=== PATIENT | male | born 1980 | race Caucasian/White ===

== ENCOUNTER 2017-11-09 19:44 | Inpatient (IN) | payer MEDICAID, OTHER ==
[~2017-11-09] VITALS: Ht 175.3 cm; Wt 84.4 kg
[2017-11-09 20:22] LABS: BASOPHILS % (AUTO) 0.7 % (0.0-2.0); EOSINOPHILS % (AUTO) 4.4 % (1.0-6.0); HEMOGLOBIN 18.7 g/dL (13.5-17.5); LYMPHOCYTES # (AUTO) 4.8 K/uL (1.0-4.8); LYMPHOCYTES % (AUTO) 42.6 % (22.0-44.0); MEAN CORPUSCULAR HEMOGLOBIN 32.6 pg (26.0-34.0); MEAN CORPUSCULAR HGB CONC 36.1 G/dL (31.0-37.0); MEAN CORPUSCULAR VOLUME 90 fL (80-100); MONOCYTES # (AUTO) 0.7 K/uL (0.1-1.0); MONOCYTES % (AUTO) 6.5 % (2.0-9.0); NEUTROPHILS # (AUTO) 5.1 K/uL (1.8-7.7); NEUTROPHILS % (AUTO) 45.8 % (40.0-70.0); PLATELET COUNT (AUTO) 286 K/uL (150-450); RED BLOOD CELL COUNT(AUTO) 5.74 MIL/uL (4.50-5.90)
[2017-11-09 20:36] LABS: ANION GAP 13 mmol/L (8-16); CALCIUM, TOTAL 8.8 mg/dL (8.8-10.5); CARBON DIOXIDE 28 mmol/L (22-29); CHLORIDE 103 mmol/L (98-107); CREATININE 0.98 mg/dL (0.60-1.30); GLOMERULAR FILTR. RATE CALC > 60 mL/min (>60); GLUCOSE,RANDOM 102 mg/dL (70-110); POTASSIUM 3.6 mmol/L (3.5-5.1); SODIUM SERUM 144 mmol/L (136-145); UREA NITROGEN, BLOOD 9 mg/dL (7-18)
[2017-11-09 20:42] LABS: ALANINE AMINOTRANSFERASE 50 U/L (12-78); ALBUMIN 4.5 g/dL (3.4-5.0); ALKALINE PHOSPHATASE 69 U/L (46-116); ASPARTATE AMINOTRANSFERASE 33 U/L (15-37); BILIRUBIN,TOTAL 0.7 mg/dL (0.1-1.0); TOTAL PROTEIN, SERUM 8.2 g/dL (6.4-8.2)
[2017-11-09 21:34] LABS: AMPHET/METH SCREEN,URINE NEGATIVE (NEGATIVE); BARBITURATE SCREEN, URINE NEGATIVE (NEGATIVE); BENZODIAZEPINES SCREEN,URINE NEGATIVE (NEGATIVE); CANNABINOID SCREEN,URINE POSITIVE (NEGATIVE); COCAINE SCREEN,URINE NEGATIVE (NEGATIVE); METHADONE SCREEN, URINE NEGATIVE (NEGATIVE); OPIATE SCREEN,URINE NEGATIVE (NEGATIVE)
[2017-11-09 21:35] LABS: PHENCYCLIDINE SCREEN,URINE NEGATIVE (NEGATIVE)
[2017-11-09] MEDS ORDERED: LORazepam 2 MG/ML VIAL IM ONE (22:15)
[2017-11-09] MEDS ORDERED: HALOPERIDOL LACTATE 5 MG/ML VIAL IM ONE (22:15)
[2017-11-09] MEDS ORDERED: DiphenhydrAMINE HCL 50 MG/ML VIAL IM ONE (22:15)
[2017-11-09] MEDS ORDERED: HALOPERIDOL 5 MG TABLET PO PRN (23:00)
[2017-11-09] MEDS ORDERED: ZOLPIDEM TARTRATE 10 MG TABLET PO PRN (23:00)
[2017-11-09 23:12] LABS: APPEARANCE,URINE CLEAR (CLEAR); BILIRUBIN,URINE NEGATIVE (NEGATIVE); GLUCOSE, URINE (UA) NEGATIVE (NEGATIVE); KETONES,URINE NEGATIVE (NEGATIVE); LEUKOCYTE ESTERASE ,URINE NEGATIVE (NEGATIVE); NITRATE,URINE NEGATIVE (NEGATIVE); OCCULT BLOOD,URINE TRACE (NEGATIVE); PH,URINE 5.5 (5.0-8.0); PROTEIN,URINE SEE CONFIRM (NEGATIVE); UROBILINOGEN,URINE 0.2 mg/dL (<=1.0)
[2017-11-09 23:32] LABS: SULFOSALICYLIC ACID,URINE 2+ (Negative)
[2017-11-09 23:33] LABS: RBC,URINE 0-2 /HPF (0-2)
[2017-11-09 23:34] LABS: BACTERIA,URINE Rare /HPF (None Seen); SQUAMOUS EPITHELIAL CELL,UR Rare /LPF (None Seen); WBC,URINE 0-2 /HPF (0-5)
[2017-11-09 23:35] LABS: FINE GRANULAR CASTS,URINE 0-2 /LPF (None Seen)
[2017-11-10] VITALS (12 sets, daily range): BP systolic 122–135; BP diastolic 74–96
[2017-11-10 00:25] LABS: CHOL/HDL RATIO 5.3 (4.2-7.3); CHOLESTEROL 218 mg/dL (131-200); HDL CHOLESTEROL 41 mg/dL (40-60); LDL CHOL (CALC.) 101 mg/dL (0-130); TRIGLYCERIDES 382 mg/dL (15-150)
[2017-11-10] MEDS ORDERED: INFLUENZA VIRUS VACCINE QVS 2017-18 (3YR+)/PF 60 MCG/0.5 ML SYRINGE IM ONE (04:45)
[2017-11-10] MEDS: LORazepam 2 MG TABLET PO PRN (07:37)
[2017-11-10] MEDS: QUEtiapine FUMARATE 25 MG TABLET PO SCH ×2 (09:37→16:08)
[2017-11-11 03:10] VITALS: BP 125/88
[2017-11-11] MEDS: LORazepam 2 MG TABLET PO PRN (03:23)
[2017-11-11 03:29] VITALS: BP 125/88
[2017-11-11 04:20] VITALS: BP 133/98
[2017-11-11 07:10] VITALS: BP 118/88
[2017-11-11 08:14] LABS: BASOPHILS % (AUTO) 0.9 % (0.0-2.0); HEMATOCRIT 46.9 % (41-53); HEMOGLOBIN 16.8 g/dL (13.5-17.5); LYMPHOCYTES # (AUTO) 2.4 K/uL (1.0-4.8); LYMPHOCYTES % (AUTO) 23.8 % (22.0-44.0); MEAN CORPUSCULAR HEMOGLOBIN 32.4 pg (26.0-34.0); MEAN CORPUSCULAR HGB CONC 35.8 G/dL (31.0-37.0); MEAN CORPUSCULAR VOLUME 90 fL (80-100); MONOCYTES # (AUTO) 0.7 K/uL (0.1-1.0); MONOCYTES % (AUTO) 7.1 % (2.0-9.0); NEUTROPHILS # (AUTO) 6.2 K/uL (1.8-7.7); NEUTROPHILS % (AUTO) 62.2 % (40.0-70.0); PLATELET COUNT (AUTO) 198 K/uL (150-450); RED BLOOD CELL COUNT(AUTO) 5.19 MIL/uL (4.50-5.90); RED CELL DISTRIBUTION WIDTH 12.7 % (11.5-14.5)
[2017-11-11 08:35] VITALS: BP 118/88
[2017-11-11 08:35] LABS: HEMOGLOBIN A1C 5.2 % (4.5-6.2)
[2017-11-11 08:38] LABS: ALANINE AMINOTRANSFERASE 43 U/L (12-78); ALBUMIN 3.5 g/dL (3.4-5.0); ALKALINE PHOSPHATASE 57 U/L (46-116); ANION GAP 11 mmol/L (8-16); ASPARTATE AMINOTRANSFERASE 36 U/L (15-37); BILIRUBIN,TOTAL 2.7 mg/dL (0.1-1.0); CALCIUM, TOTAL 8.9 mg/dL (8.8-10.5); CARBON DIOXIDE 26 mmol/L (22-29); CHLORIDE 101 mmol/L (98-107); CHOL/HDL RATIO 4.6 (4.2-7.3); CHOLESTEROL 169 mg/dL (131-200); CREATININE 0.82 mg/dL (0.60-1.30); FREE T4 (FREE THYROXINE) 0.69 ng/dL (0.76-1.46); GLOMERULAR FILTR. RATE CALC > 60 mL/min (>60); GLUCOSE,RANDOM 84 mg/dL (70-110); HDL CHOLESTEROL 37 mg/dL (40-60); LDL CHOL (CALC.) 84 mg/dL (0-130); POTASSIUM 3.5 mmol/L (3.5-5.1); SODIUM SERUM 138 mmol/L (136-145); THYROID STIMULATING HORMONE 1.31 uIU/mL (0.36-3.74); TOTAL PROTEIN, SERUM 6.8 g/dL (6.4-8.2); TRIGLYCERIDES 241 mg/dL (15-150); UREA NITROGEN, BLOOD 11 mg/dL (7-18)
[2017-11-11] MEDS: QUEtiapine FUMARATE 25 MG TABLET PO SCH (08:41)
[2017-11-11] MEDS: QUEtiapine FUMARATE 100 MG TABLET PO SCH (16:15)
[2017-11-11] MEDS: NICOTINE 21 MG/24 HOUR PATCH TD SCH (16:15)
[2017-11-11 20:10] VITALS: BP 126/85
[2017-11-12 02:20] VITALS: BP 127/90
[2017-11-12 02:36] VITALS: BP 127/90
[2017-11-12 08:13] VITALS: BP 126/94
[2017-11-12] MEDS ORDERED: DENTURE ADHESIVE 68 GM CREAM DT PRN (09:00)
[2017-11-12] MEDS: QUEtiapine FUMARATE 100 MG TABLET PO SCH ×2 (09:15→17:36)
[2017-11-12] MEDS: NICOTINE 21 MG/24 HOUR PATCH TD SCH (09:16)
[2017-11-12] MEDS: GEMFIBROZIL 600 MG TABLET PO SCH (16:30)
[2017-11-12 17:11] VITALS: BP 130/98
[2017-11-13 02:00] VITALS: BP 125/80
[2017-11-13] MEDS: GEMFIBROZIL 600 MG TABLET PO SCH (06:35)
[2017-11-13] MEDS: NICOTINE 21 MG/24 HOUR PATCH TD SCH (08:24)
[2017-11-13] MEDS: QUEtiapine FUMARATE 100 MG TABLET PO SCH (08:24)
[2017-11-13 08:47] VITALS: BP 136/94
[2017-11-13] MEDS ORDERED: SERTRALINE HCL 50 MG TABLET PO SCH (09:00)
[2017-11-13] MEDS ORDERED: MAGNESIUM HYDROXIDE SUSPENSION 30 ML UDCUP PO PRN (12:00)
[2017-11-13] MEDS ORDERED: ACETAMINOPHEN 325 MG TABLET PO PRN (12:00)
[2017-11-13] MEDS ORDERED: HydrOXYzine PAMOATE 50 MG CAPSULE PO PRN (12:00)
[2017-11-13] MEDS ORDERED: GuaiFENesin/D-METHORPHAN [SUGAR-FREE] 200-20MG/10 ML SYRUP UDCUP PO PRN (12:00)
[2017-11-13] MEDS ORDERED: LOPERAMIDE HCL 2 MG CAPSULE PO PRN (12:00)
[2017-11-13] MEDS ORDERED: PROMETHAZINE HCL 25 MG TABLET PO PRN (12:00)
[2017-11-13] MEDS ORDERED: MAG HYDROX/AL HYDROX/SIMETH ES 30 ML SUSPENSION UDCUP PO PRN (12:00)
[2017-11-13] MEDS ORDERED: BUPR-47 PO (12:01)
[2017-11-13] MEDS ORDERED: NALT50TA PO (12:01)
[2017-11-13] MEDS ORDERED: GEMF600T3 PO (13:31)
[2017-11-13] MEDS ORDERED: BUPR-93 PO (13:31)
[2017-11-13] MEDS ORDERED: NALT50TA6 PO (13:31)
[2017-11-13] MEDS ORDERED: THIAMINE HCL 100 MG TABLET PO SCH (17:00)
[2017-11-14] MEDS ORDERED: NALTREXONE HCL 50 MG TABLET PO SCH (09:00)
[2017-11-14] MEDS ORDERED: MULTIVITAMINS WITH MINERALS, THERAPEUTIC TABLET PO SCH (09:00)
[2017-11-14] MEDS ORDERED: FOLIC ACID 1 MG TABLET PO SCH (09:00)
[2017-11-14] MEDS ORDERED: BuPROPion HCL XL 150 MG ER TABLET PO SCH (09:00)
== END 2017-11-13 15:08 | disposition home or self-care (01) | DRG 751 ==
LOC: EMS 19:45 → B2S 11-10 03:13
PROVIDERS: ADMIT Psychiatry & Neurology Psychiatry; ATTEND Psychiatry & Neurology Psychiatry
DX: F32.2 Major depressive disorder, single episode, severe without psychotic features (principal); R45.851 Suicidal ideations; Z91.19 Patient's noncompliance with other medical treatment and regimen; I10 Essential (primary) hypertension; E78.1 Pure hyperglyceridemia; F10.229 Alcohol dependence with intoxication, unspecified; F17.200 Nicotine dependence, unspecified, uncomplicated; Y90.8 Blood alcohol level of 240 mg/100 ml or more; F12.90 Cannabis use, unspecified, uncomplicated; F41.9 Anxiety disorder, unspecified
CPT/HCPCS: 83036; 84439; 84443; 96372; 99285; G0480; J1200; J1630; J2060